=== PATIENT | female | born 1980 | race Caucasian/White ===

== ENCOUNTER 2020-12-19 09:57 | Emergency (ER) | payer MEDICARE, OTHER ==
[~2020-12-19] VITALS: Ht 172.7 cm; Wt 113.4 kg
[~2020-12-19 09:57] MED LIST: AMOX500 PO; AMOX875 PO; HYDACE10B PO; NEOPOLHYDS OT; PENVK500 PO; TRAACE PO
[2020-12-19] MEDS ORDERED: Prednisone20 MG PO (10:43)
[2020-12-19] MEDS ORDERED: Valtrex1000 MG PO (10:43)
[2020-12-19] MEDS ORDERED: Zofran4 MG PO (10:54)
== END 2020-12-19 10:55 | disposition home or self-care (01) ==
LOC: ER 09:57
DX: G51.0 Bell's palsy (principal); Z79.52 Long term (current) use of systemic steroids; Z79.899 Other long term (current) drug therapy
CPT/HCPCS: 99283

== ENCOUNTER → 2021-07-01 | Outpatient (CLI) | payer MEDICARE, OTHER ==
[~2021-07-01] MED LIST changes: +Prednisone20 MG PO; +Valtrex1000 MG PO; +Zofran4 MG PO
== END | disposition home or self-care (01) ==
LOC: LAB SHORT 10:00
DX: K21.9 Gastro-esophageal reflux disease without esophagitis (principal)
CPT/HCPCS: 87338

== ENCOUNTER → 2022-05-23 | Outpatient (CLI) | payer MEDICARE ==
[2022-05-27 11:11] LABS: HPV 16 Negative (Negative); HPV 18 Negative (Negative); HPV OTHER HR TYPES Negative (Negative)
== END ==
LOC: LAB SHORT 16:17 → LAB 16:17
PROVIDERS: Family Medicine
DX: Z01.419 Encounter for gynecological examination (general) (routine) without abnormal findings (principal)
CPT/HCPCS: 87624; G0123